=== PATIENT | female | born 1960 | race Caucasian/White ===

== ENCOUNTER 2018-08-28 13:36 | Emergency (ER) | payer MEDICAID ==
[~2018-08-28] VITALS: Ht 152.4 cm; Wt 65.0 kg
[2018-08-28 13:48] VITALS: BP 161/89
== END 2018-08-28 15:49 | disposition left against medical advice (07) ==
LOC: ER 14:40
DX: R07.89 Other chest pain (principal); Z53.21 Procedure and treatment not carried out due to patient leaving prior to being seen by health care provider